=== PATIENT | male | born 2000 | race American Indian/Alaskan Native ===

== ENCOUNTER 2024-10-30 12:52 | Emergency (ER) | payer MEDICAID ==
[~2024-10-30] VITALS: Ht 170.2 cm; Wt 74.4 kg
[2024-10-30 13:07] VITALS: BP 136/88; PULSE 110; RESP 18; TEMP 98.1; O2SAT 98
[2024-10-30] MEDS: ibuprofen tablet 400 MG TABLET PO ONE (14:10)
--- NOTE | 2024-10-30 14:13 | Physician Documentation ---
History of Present Illness ~ Chief Complaint: Laceration Stated Complaint: HEAD LAC Time Seen by MD: 14:05 HPI This is a 24-year-old male who presents with a laceration to his anterior left crown of scalp due to walking into a wooden structure, patient reports feeling of headache and nausea however also reports drinking heavily last night. Patient reports no other acute symptoms or concerns. Patient reports no loss of consciousness and no blood thinners. Medication Reconciliation Allergies: Coded Allergies: No Known Allergies (Unverified , 10/30/24) Scheduled PRN ONDANSETRON ODT 4mg tablet (Ondansetron Odt), 1 TAB PO Q6H PRN PRN for nausea/vomiting Past Medical History Past Medical History: No Pertinent History Review of Systems ROS As stated above in the HPI, otherwise all systems are reviewed and negative. Physical Exam Vital Signs: Temperature: 98.1, Source: Oral, Heart Rate: 110, Respiratory Rate: 18, BP: 136/88, Pulse Oximetry: 98, Weight: 74.400 Physical Exam VITALS: Reviewed and as above. GENERAL: Alert, nontoxic appearing, no apparent distress. HEENT: 3 cm laceration to the left anterior crown of scalp no galea visible, no observable foreign body, PERRLA, EOMI, no other injuries to head or scalp RESPIRATORY: No increased work of breathing, no respiratory distress, speaking in full clear sentences Procedures Laceration/Wound Repair Laceration : Location: Left interior crown of scalp Length (cm): 3 Anesthesia: Lidocaine w/ Epi Volume Anesthetic (mls): 8 Prep: irrigated by nurse Margins: revised Foreign Body: not identified Repaired: skin Wound Repaired With: chhaya Number of Superficial Sutures: 9 Layer Closure?: No Dressing Applied: none Splint Applied?: No Sling Applied?: No Tolerated Procedure Well?: yes, no complications Progress Results/Orders Results/Orders Completed Orders - PANKAJ SANCHEZ Ondansetron Disint. Tablet (Zofran Odt T (10/30/24 14:10) Ibuprofen Tablet (Motrin Tablet) (10/30/24 14:10) Lidocaine 1% W/Epi 1:100,000 (Xylocaine (10/30/24 14:10) Tetanus/Pertuss/Diph Acell/Pf (Boostrix (10/30/24 14:10) Ondansetron Inj. (Zofran 4mg/2ml Vial) (10/30/24 15:15) Vital Signs 10/30/24 13:07 Temp 98.1 Pulse 110 Resp 18 B/P (MAP) 136/88 Pulse Ox 98 Medical Decision Making Findings This 24-year-old male presented with a laceration to the anterior aspect of the left crown of the scalp due to walking into a wooden structure while intoxicated, patient reported headache and nausea, and experienced episodes of vomiting while in the emergency department however attribute these symptoms to hang over based on discussion with the patient about heavy alcohol use the night before, patient did not have other evidence of increased intracranial pressure including no confusion or ataxia, and remainder of physical exam was benign without other evidence of injuries, additionally it is reassuring patient pupils were PERRLA. The laceration was anesthetized, irrigated, and repaired utilizing chhaya without complication, patient provided home care instructions return to care precautions, and follow up instructions which he verbalized understanding of. Differential Dx:Considerations: Include: Abrasion, Avulsion, Contusion, Laceration, Fracture, Hematoma, Retained foreign body, Other (Skull fracture, intracranial hemorrhage) Departure Disposition: HOME / SELF CARE / HOMELESS Impression: Primary Impression: Laceration Additional Impression: Concussion Qualified Codes: S06.0X0A - Concussion without loss of consciousness, initial encounter Condition: Improved Discharge Instructions: Concussion, Adult, [id number], Sutures, Chhaya, or Adhesive Wound Closure, [id number] Additional Instructions: Keep the area clean and dry, do not soak the area, do not go swimming, otherwise submerge your head. Please return to your choice of medical provider (including this ER) in seven days for staple removal. You may use the prescribed Zofran as needed for nausea or vomiting. Please follow up with your primary care provider in the next few days. Please return to the emergency department for any new or worsening concerning symptoms. Referrals: NO PRIMARY CARE PROVIDER (PCP) Prescriptions ONDANSETRON ODT 4mg tablet (ONDANSETRON ODT) 4 Mg Tab.rapdis 1 TAB PO Q6H PRN PRN for nausea/vomiting for 2 Days, #8 TAB 0 Refills Prov: PANKAJ SANCHEZ 10/30/24 Education Educated: Patient Educated regarding: diagnosis, treatment, prognosis, need for follow up Signature Scribe Signature: No scribe Attestation: The note accurately reflects work and decisions made by me.ZANE Gregg 10/31/24 15:23 PANKAJ SANCHEZ Oct 30, 2024 14:13
[2024-10-30] MEDS: ondansetron 4mg rapidly disintigrating tab PO ONE (14:53)
[2024-10-30] MEDS: TETanus/Pertussis (Acell)/Diphther VAC/PF (Tdap-Adult) 0.5ml syringe IMVAC ONE (14:53)
[2024-10-30] MEDS: LIDOcaine 1% W/epiNEPHrine 1:100,000 20ml vial IJ ONE (14:54)
[2024-10-30] MEDS ORDERED: ONDA-243 PO (15:21)
[2024-10-30] MEDS: ondansetron/PF 4mg/2ml inj IM ONE (15:34)
== END 2024-10-30 16:13 | disposition home or self-care (01) ==
LOC: ER 12:53
DX: S01.01XA Laceration without foreign body of scalp, initial encounter (principal); S06.0X0A Concussion without loss of consciousness, initial encounter; W22.09XA Striking against other stationary object, initial encounter; Y93.89 Activity, other specified; Y92.89 Other specified places as the place of occurrence of the external cause; Y99.8 Other external cause status
CPT/HCPCS: 12002; 90471; 90715; 96372; 99284; J2405; J7030; A6449

== ENCOUNTER 2024-11-07 22:03 | Emergency (ER) | payer MEDICAID ==
[~2024-11-07] VITALS: Ht 170.2 cm; Wt 76.1 kg
[~2024-11-07 22:03] MED LIST: ONDA-243 PO
[2024-11-07 22:10] VITALS: BP 137/77; PULSE 113; RESP 15; TEMP 97.6; O2SAT 100
--- NOTE | 2024-11-07 22:57 | Physician Documentation ---
History of Present Illness ~ Chief Complaint: Staple Removal Stated Complaint: SUTURE REMOVAL Time Seen by MD: 22:21 HPI Patient is seen today with complaints of needing chhaya removed from his scalp just within the hairline advise forehead. Patient states he was drunk about a week ago and fell and split the front of his scalp open. Patient denies any neurologic deficits or headaches or caution symptoms. He has no other concern or complaint at this time Tetanus Within 5 Years: Yes (UPDATING TODAY 10/30/24) Medication Reconciliation Allergies: Coded Allergies: No Known Allergies (Unverified , 11/07/24) Scheduled PRN ONDANSETRON ODT 4mg tablet (Ondansetron Odt), 1 TAB PO Q6H PRN PRN for nausea/vomiting Past Medical History Past Medical History: No Pertinent History Review of Systems Constitutional: Denies: chills, fever, weakness Eyes: Denies: pain, blurred vision ENT: Denies: ear pain, nose pain, throat pain, mouth pain Respiratory: Denies: cough, shortness of breath Cardiovascular: Denies: chest pain, palpitations Gastrointestinal: Denies: abdominal pain, nausea, vomiting Genitourinary: Denies: burning, dysuria Male Genitalia: Denies: penile discharge, testicular pain Neurological: Denies: headache, dizziness Musculoskeletal: Denies: pain, swelling Integumentary: Denies: rash, lesions Allergic/Immunologic: Denies: hives, itching Hematologic/Lymphatic: Denies: no symptoms reported Psychiatric: Denies: depression, anxiety Physical Exam Vital Signs: Temperature: 97.6, Source: Oral, Heart Rate: 113, Respiratory Rate: 15, BP: 137/77, Pulse Oximetry: 100, Weight: 76.100 Oxygen Flow Rate: 0 Physical Exam General: Awake and Alert, no acute distress. HEENT: Does have [address] of his scalp in the hairline of the frontalis. Conjunctiva pink, Sclera clear, Mucus Membranes moist. Neck: Supple without masses and tenderness. Resp: Unlabored. Lungs clear to auscultation bilaterally. Extremities: No cyanosis,clubbing or edema. Skin: Patient does have healed laceration within the hairline in the frontal area of the scalp midline. I do not appreciate any swelling or induration or purulent drainage or sign of infection. Patient appears well healed. Progress Results/Orders Results/Orders Vital Signs 11/07/24 22:10 Temp 97.6 Pulse 113 Resp 15 B/P (MAP) 137/77 Pulse Ox 100 O2 Flow Rate 0 Medical Decision Making Findings Patient is seen today with complaints of needing chhaya removed from his scalp just within the hairline advise forehead. Patient states he was drunk about a week ago and fell and split the front of his scalp open. Patient denies any n eurologic deficits or headaches or caution symptoms. He has no other concern or complaint at this time Patient did have chhaya removed by myself today. Patient tolerated well. Patient will follow up as needed with primary care or return to ED with any worsening, concerning or changing symptoms. Departure Disposition: 01 HOME / SELF CARE / HOMELESS Impression: Primary Impression: Removal of staple Condition: Improved Discharge Instructions: Suture Removal, Care After Additional Instructions: Patient did have chhaya removed by myself today. Patient tolerated well. Patient will follow up as needed with primary care or return to ED with any worsening, concerning or changing symptoms. Referrals: NO PRIMARY CARE PROVIDER (PCP) Signature Scribe Signature: No scribe Attestation: No scribe KSENIA ROBLES PAC Nov 07, 2024 22:57
== END 2024-11-07 23:12 | disposition home or self-care (01) ==
LOC: ER 22:03
DX: S01.01XD Laceration without foreign body of scalp, subsequent encounter (principal); X58.XXXD Exposure to other specified factors, subsequent encounter
CPT/HCPCS: 99281